=== PATIENT | male | born 1955 | race Caucasian/White ===

== ENCOUNTER 2017-02-07 08:42 | Day surgery (SDC) | payer OTHER ==
[2017-02-07 09:32] VITALS: BMI 23.4
[2017-02-07 10:17] VITALS: TEMP 97.6
[2017-02-07 15:52] VITALS: BP 142/71; PULSE 64
--- NOTE | 2017-02-08 11:17 | PATH ---
Surgical Pathology Report Patient Name: RODNEY BIRD [facility]. Rec. #: [id number] /Age/Gender: 1955 (Age: 61) / M Account: [id number] Location: [facility]-ENDOSCOPY Taken: 02/07/2017 Received: 02/07/2017 Reported: 02/08/2017 Physicians: Brian Ordaz M.D. Specimen(s) Received PROXIMAL ASCENDING COLON POLYP Clinical History History of colon polyp Polyp Final Diagnosis COLON, PROXIMAL ASCENDING, SNARE POLYPECTOMY: TUBULAR ADENOMA. Comment: Completeness of resection is best assessed by the performing endoscopist. Electronically Signed Les Parmar M.D. Gross Description Received in formalin, labeled "proximal ascending colon polyp" is a valdovinos, polypoid portion of soft tissue measuring 0.6 cm. in greatest dimension. The specimen is submitted in toto in one cassette. /02/07/201702/07/2017
== END 2017-02-07 11:10 | disposition home or self-care (01) ==
LOC: JASU-ENDO 08:42
PROVIDERS: ATTEND Internal Medicine Gastroenterology
PROC: 0DBK8ZX Excision of Ascending Colon, Via Natural or Artificial Opening Endoscopic, Diagnostic (ICD-10-PCS; principal; 2017-02-07 09:30)
DX: Z86.010 Personal history of colon polyps (principal); D12.2 Benign neoplasm of ascending colon
CPT/HCPCS: 36415; 84132; 88305-TC

== ENCOUNTER 2017-04-04 07:32 | Day surgery (SDC) | payer OTHER ==
[2017-04-03 10:53] VITALS: BMI 24.2
--- NOTE | 2017-04-04 05:58 | HP ---
History & Physical Update - History History: No Change - Physical Physical: No Change - Assessment Assessment: No Change - Plan Plan: No Change
[~2017-04-04 07:32] MED LIST: TOBRA 0.3%/DEXAMETH 0.1% OPHTHALMIC SUSP 2.5 ML BTL TP ONE
[2017-04-04] MEDS ORDERED: MOXIFLOXACIN HCL 0.5% OPHTHALMIC 3 ML BOTTLE ONE (07:43)
[2017-04-04] MEDS ORDERED: CYCLOPENTOLATE HCL 1% OPHTH SOLN 2 ML BOTTLE ONE (07:44)
[2017-04-04] MEDS ORDERED: TROPICAMIDE 1% OPHTH SOLN 15 ML BOTTLE ONE (07:44)
[2017-04-04] MEDS ORDERED: PHENYLEPHRINE 2.5% OPHTH SOLN 15 ML BOTTLE ONE (07:44)
[2017-04-04] MEDS: PHENYLEPHRINE 2.5% OPHTH SOLN 15 ML BOTTLE OP SCH ×3 (07:50→08:00)
[2017-04-04] MEDS: MOXIFLOXACIN HCL 0.5% OPHTHALMIC 3 ML BOTTLE OP SCH ×3 (07:50→08:00)
[2017-04-04] MEDS: TROPICAMIDE 1% OPHTH SOLN 15 ML BOTTLE OP SCH ×3 (07:50→08:00)
[2017-04-04] MEDS: CYCLOPENTOLATE HCL 1% OPHTH SOLN 2 ML BOTTLE OP SCH ×3 (07:50→08:00)
[2017-04-04 08:08] VITALS: TEMP 97.9
[2017-04-04] MEDS ORDERED: BSS (NA/CA/MG/K) BALANCED SALT SOLUTION OPHTH SOLN 15 ML BOTTLE ONE (09:10)
[2017-04-04] MEDS ORDERED: LIDOCAINE HCL/PF 1% SDV 5ML VIAL ONE (09:10)
[2017-04-04] MEDS ORDERED: EPINEPHrine/PF 1 MG/1 ML (1:1,000) AMPULE ONE (09:10)
[2017-04-04] MEDS ORDERED: TOBRA 0.3%/DEXAMETH 0.1% OPHTHALMIC SUSP 2.5 ML BTL ONE (09:11)
[2017-04-04] MEDS ORDERED: MIDAZOLAM HCL 2 MG/2 ML SINGLE DOSE VIAL ONE (09:21)
[2017-04-04] MEDS ORDERED: TETRACAINE 0.5% HCL 0.6ML DROPPER.BOTTLE TP ONE (09:22)
[2017-04-04] MEDS ORDERED: LIDOCAINE HCL 1% PRESERVATIVE FREE - 30ML VIAL IO ONE (09:32)
[2017-04-04] MEDS ORDERED: CHONDROITIN SU A/HYALUR SOD 1 KIT IO ONE (09:34)
[2017-04-04] MEDS ORDERED: TOBRA 0.3%/DEXAMETH 0.1% OPHTHALMIC SUSP 2.5 ML BTL TP ONE (10:01)
[2017-04-04 11:42] VITALS: BP 118/61; PULSE 79
--- NOTE | 2017-04-04 15:21 | OP ---
DATE OF OPERATION: 04/04/2017 SURGEON: Robbin Dick MD PREOPERATIVE DIAGNOSIS: Cataract, right eye. OPERATION: Phacoemulsification and intraocular lens implantation, right eye. POSTOPERATIVE DIAGNOSIS: Cataract, right eye. ANESTHESIA: Topical. COMPLICATIONS: None. BLOOD LOSS: None. SPECIMENS: None. BRIEF HISTORY: The patient is a 61-year-old man with a past medical history of diabetes, who presented with decreased vision of the right eye down to 20/100 due to a 2+ nuclear sclerotic lens and posterior cortical changes. After the risks, benefits, and alternatives to cataract surgery were discussed with the patient including the increased risk due to patient's use of Flomax and poorly dilating pupil, the patient consented to surgery. DESCRIPTION OF PROCEDURE: The patient was brought to the operating room and administered a retrobulbar block after receiving intravenous sedation. He was then prepped and draped in usual sterile fashion. An eyelid speculum was inserted in the right eye. A paracentesis was made in the anterior chamber and was inflated with nonpreserved lidocaine. This was followed by injection of Viscoat. At this point, due to the poorly dilating pupil down to 4 mm, it was determined to place iris hooks in order to enlarge and stabilize the iris. This was done with 5 iris hooks without incident. A groove was made in the temporal clear cornea which was tunneled forward with a crescent blade. The anterior chamber was entered with a 2.75 keratome. The cystotome was used to make an incision in the center of the capsule, and a continuous curvilinear capsulorrhexis was created. The lens was hydrodissected until it was found to rotate freely within the capsular bag. Phacoemulsification was then used to remove the lens in its entirety. Irrigation and aspiration were used to remove residual cortical material. The anterior chamber and capsular bag were re-inflated with Provisc, and a 22.5-diopter SN60WF AcrySof intraocular lens was injected into the capsular bag using the [place] injector. The lens was dialed into place using a Sinskey hook. Irrigation and aspiration were used to remove residual Viscoelastic. The wound was stromally hydrated. The 5 previously placed iris hooks were removed without incident. The wound was checked and found to be watertight and the eye was at an appropriate pressure. The eyelid speculum was removed from the eye, and TobraDex drops and a clear shield were placed over the right eye. The patient was transferred to the recovery room in stable condition and will follow up tomorrow. ROBBIN DICK M.D. [id number]
== END 2017-04-04 11:15 | disposition home or self-care (01) ==
LOC: JASU-SURG 07:32
PROVIDERS: ATTEND Ophthalmology
PROC: 08RJ3JZ Replacement of Right Lens with Synthetic Substitute, Percutaneous Approach (ICD-10-PCS; principal; 2017-04-04 09:00)
DX: H25.11 Age-related nuclear cataract, right eye (principal); H57.04 Mydriasis